=== PATIENT | male | born 1975 | race African-American/Black ===

== ENCOUNTER 2020-10-18 15:41 | Inpatient (IN) | payer OTHER ==
[2020-10-18 18:52] VITALS: BMI 24.3
[2020-10-18] MEDS ORDERED: MAGNESIUM CITRATE 300 ML BOTTLE PO PRN (22:52)
[2020-10-18] MEDS ORDERED: P-EPHED 60MG/TRIPROLIDI 2.5MG TABLET PO PRN (22:52)
[2020-10-18] MEDS ORDERED: MAGNESIUM HYDROX 2400MG/30ML ORAL SUSPENSION 30 ML CUP PO PRN (22:52)
[2020-10-18] MEDS ORDERED: hydrOXYzine PAMOATE 25 MG CAPSULE (FP) PO PRN (22:52)
[2020-10-18] MEDS ORDERED: MAG HYDROX/AL HYDROX/SIMETH 30 ML UNIT-DOSE CUP PO PRN (22:52)
[2020-10-18] MEDS ORDERED: IBUPROFEN 400 MG TABLET (FP) PO PRN (22:52)
[2020-10-18] MEDS ORDERED: LOPERAMIDE HCL 2 MG CAPSULE PO PRN (22:52)
[2020-10-18] MEDS ORDERED: ACETAMINOPHEN 325 MG TABLET (FP) PO PRN (22:52)
[2020-10-18] MEDS ORDERED: guaiFENesin 200 MG/10 ML 10 ML UNIT-DOSE CUPS PO PRN (22:52)
[2020-10-19] MEDS: MELATONIN 5 MG TABLETS PO SCH ×2 (01:30→23:16)
[2020-10-19] MEDS: PRENATAL VITAMINS W/ FOLIC ACID TABLET (FP) PO SCH (10:28)
[2020-10-19] MEDS: THIAMINE HCL 100 MG TABLET (FP) PO SCH (23:16)
[2020-10-20] MEDS: PRENATAL VITAMINS W/ FOLIC ACID TABLET (FP) PO SCH (10:20)
[2020-10-20] MEDS: THIAMINE HCL 100 MG TABLET (FP) PO SCH (23:00)
[2020-10-20] MEDS: MELATONIN 5 MG TABLETS PO SCH (23:00)
[2020-10-21] MEDS: PRENATAL VITAMINS W/ FOLIC ACID TABLET (FP) PO SCH (10:23)
[2020-10-21 12:18] VITALS: BP 122/69; PULSE 78; TEMP 97.5
[2020-10-21] MEDS ORDERED: MASKS NR ONE (15:17)
[2020-10-21] MEDS ORDERED: IBUPROFEN 400 MG TABLET (FP) PO PRN (15:18)
== END 2020-10-21 19:40 | disposition home or self-care (01) | DRG 772 ==
LOC: YASAS 15:41 → Y3W 23:41
PROVIDERS: ADMIT Allergy & Immunology; ATTEND Allergy & Immunology
PROC: HZ42ZZZ Group Counseling for Substance Abuse Treatment, Cognitive-Behavioral (ICD-10-PCS; principal; 2020-10-18)
DX: F14.20 Cocaine dependence, uncomplicated (principal); F10.10 Alcohol abuse, uncomplicated; F17.210 Nicotine dependence, cigarettes, uncomplicated; F20.9 Schizophrenia, unspecified; F19.24 Other psychoactive substance dependence with psychoactive substance-induced mood disorder; M25.512 Pain in left shoulder; Z56.0 Unemployment, unspecified; Z59.0 Homelessness
CPT/HCPCS: 73030-TC-LT-FY; C9803; U0003; U0005